=== PATIENT | female | born 1975 ===

== ENCOUNTER 2018-12-15 12:19 | Inpatient (IN) | payer OTHER ==
[~2018-12-15] VITALS: Ht 160 cm; Wt 56.2 kg
[2018-12-22] MEDS ORDERED: PERCOCET 5-3251 EACH PO (14:44)
[2018-12-22] MEDS ORDERED: MACROBID 100 M100 MG PO (14:44)
[2018-12-22] MEDS ORDERED: SENOKOT-S TABL1 EACH PO (14:44)
== END 2018-12-22 17:53 | disposition home or self-care (01) | DRG 743 ==
LOC: SURH 12-22 07:00 → O/R 12-22 07:15 → SURH 12-22 14:15 → O/R 12-22 17:53
PROVIDERS: Surgery; Urology; ADMIT Obstetrics & Gynecology Gynecology
PROC: 0DJD8ZZ Inspection of Lower Intestinal Tract, Via Natural or Artificial Opening Endoscopic (ICD-10-PCS; 2018-12-22)
PROC: 0UT64ZZ Resection of Left Fallopian Tube, Percutaneous Endoscopic Approach (ICD-10-PCS; principal; 2018-12-22 07:00)
PROC: 0UT04ZZ Resection of Right Ovary, Percutaneous Endoscopic Approach (ICD-10-PCS; 2018-12-22 07:00)
PROC: 0DNW4ZZ Release Peritoneum, Percutaneous Endoscopic Approach (ICD-10-PCS; 2018-12-22 07:00)
DX: N83.292 Other ovarian cyst, left side (principal); N80.5 Endometriosis of intestine; K66.0 Peritoneal adhesions (postprocedural) (postinfection)